=== PATIENT | female | born 1975 | race Two or more races ===

== ENCOUNTER → 2018-08-18 | Outpatient (CLI) | payer MEDICARE ==
[~2018-08-18] VITALS: Ht 162.6 cm; Wt 104.0 kg
[~2018-08-18] MED LIST: ASPI-556 PO; ATOR40TA28 PO; BUME1TAB17 PO; CARV25 PO; DOXY100C PO; INSLAN SQ; INSU100C6 SQ; LISI-662 PO; SPIR25 PO
[2018-08-18 09:32] VITALS: BP 163/98
[2018-08-18 10:08] LABS: GLUCOMETER DEV NAME(LOC) HBW.; GLUCOSE,POINT OF CARE 324 MG/DL (70-110)
[2018-08-18 11:48] LABS: BASOPHILS % (AUTO) 0.7 % (0.0-2.0); EOSINOPHILS % (AUTO) 2.8 % (1.0-6.0); HEMATOCRIT 25.5 % (36-46); HEMOGLOBIN 8.4 g/dL (12.0-16.0); LYMPHOCYTES # (AUTO) 2.4 K/uL (1.0-4.8); LYMPHOCYTES % (AUTO) 28.2 % (22.0-44.0); MEAN CORPUSCULAR HEMOGLOBIN 27.5 pg (26.0-34.0); MEAN CORPUSCULAR HGB CONC 32.8 G/dL (31.0-37.0); MEAN CORPUSCULAR VOLUME 84 fL (80-100); MONOCYTES # (AUTO) 0.5 K/uL (0.1-1.0); MONOCYTES % (AUTO) 6.1 % (2.0-9.0); NEUTROPHILS # (AUTO) 5.3 K/uL (1.8-7.7); NEUTROPHILS % (AUTO) 62.2 % (40.0-70.0); PLATELET COUNT (AUTO) 298 K/uL (150-450); RED BLOOD CELL COUNT(AUTO) 3.05 MIL/uL (4.00-5.20); RED CELL DISTRIBUTION WIDTH 14.9 % (11.5-14.5)
[2018-08-18 11:59] LABS: ALBUMIN 1.7 g/dL (3.4-5.0); C-REACTIVE PROTEIN QUANT 0.25 mg/dL (0.00-0.30)
[2018-08-18 12:51] LABS: ERYTHROCYTE SEDIMENTATION RATE 110 MM/HR (0-20)
== END | disposition home or self-care (01) ==
LOC: HBOWC 09:13
PROVIDERS: ATTEND Emergency Medicine
DX: M77.32 Calcaneal spur, left foot (principal); L98.499 Non-pressure chronic ulcer of skin of other sites with unspecified severity; M86.9 Osteomyelitis, unspecified; Z89.111 Acquired absence of right hand
CPT/HCPCS: 84134; 85651; 86140; 87070

== ENCOUNTER → 2018-08-25 | Outpatient (CLI) | payer MEDICARE ==
[2018-08-25 10:34] LABS: GLUCOMETER DEV NAME(LOC) HBW.; GLUCOSE,POINT OF CARE 382 MG/DL (70-110)
[2018-08-25 10:35] VITALS: BP 168/81
== END | disposition home or self-care (01) ==
LOC: HBOWC 09:47
PROVIDERS: ATTEND Emergency Medicine
DX: E11.621 Type 2 diabetes mellitus with foot ulcer (principal); I83.014 Varicose veins of right lower extremity with ulcer of heel and midfoot; L97.412 Non-pressure chronic ulcer of right heel and midfoot with fat layer exposed; I83.024 Varicose veins of left lower extremity with ulcer of heel and midfoot; L97.422 Non-pressure chronic ulcer of left heel and midfoot with fat layer exposed; I83.015 Varicose veins of right lower extremity with ulcer other part of foot; L97.512 Non-pressure chronic ulcer of other part of right foot with fat layer exposed; I83.025 Varicose veins of left lower extremity with ulcer other part of foot; L97.522 Non-pressure chronic ulcer of other part of left foot with fat layer exposed; L84 Corns and callosities; E11.51 Type 2 diabetes mellitus with diabetic peripheral angiopathy without gangrene; E11.42 Type 2 diabetes mellitus with diabetic polyneuropathy; B35.1 Tinea unguium; D64.9 Anemia, unspecified; E46 Unspecified protein-calorie malnutrition; E11.22 Type 2 diabetes mellitus with diabetic chronic kidney disease; I13.0 Hypertensive heart and chronic kidney disease with heart failure and stage 1 through stage 4 chronic kidney disease, or unspecified chronic kidney disease; I50.9 Heart failure, unspecified; N18.9 Chronic kidney disease, unspecified; E78.5 Hyperlipidemia, unspecified; K76.89 Other specified diseases of liver; E11.69 Type 2 diabetes mellitus with other specified complication; M86.9 Osteomyelitis, unspecified; F17.290 Nicotine dependence, other tobacco product, uncomplicated; Z79.4 Long term (current) use of insulin; Z79.82 Long term (current) use of aspirin; Z89.111 Acquired absence of right hand; Z89.421 Acquired absence of other right toe(s)
CPT/HCPCS: 11042

== ENCOUNTER 2018-09-21 18:22 | Emergency (ER) | payer MEDICARE ==
[~2018-09-21] VITALS: Ht 162.6 cm; Wt 104.5 kg
[2018-09-21 19:06] LABS: BASOPHILS % (AUTO) 1.2 % (0.0-2.0); EOSINOPHILS % (AUTO) 2.7 % (1.0-6.0); HEMATOCRIT 26.3 % (36-46); HEMOGLOBIN 8.6 g/dL (12.0-16.0); LYMPHOCYTES # (AUTO) 2.3 K/uL (1.0-4.8); MEAN CORPUSCULAR HEMOGLOBIN 26.7 pg (26.0-34.0); MEAN CORPUSCULAR HGB CONC 32.7 G/dL (31.0-37.0); MEAN CORPUSCULAR VOLUME 82 fL (80-100); MONOCYTES # (AUTO) 0.4 K/uL (0.1-1.0); MONOCYTES % (AUTO) 4.9 % (2.0-9.0); NEUTROPHILS % (AUTO) 66.2 % (40.0-70.0); PLATELET COUNT (AUTO) 315 K/uL (150-450); RED BLOOD CELL COUNT(AUTO) 3.21 MIL/uL (4.00-5.20); RED CELL DISTRIBUTION WIDTH 14.7 % (11.5-14.5)
[2018-09-21 19:14] LABS: CALCIUM, TOTAL 8.1 mg/dL (8.8-10.5); CREATININE 1.52 mg/dL (0.60-1.30); POTASSIUM 4.2 mmol/L (3.5-5.1)
[2018-09-21 19:18] LABS: PROTHROMBIN TIME 10.4 SEC (9.4-11.6)
[2018-09-21 19:20] LABS: ALBUMIN 1.6 g/dL (3.4-5.0); BILIRUBIN,TOTAL 0.2 mg/dL (0.1-1.0); TOTAL PROTEIN, SERUM 6.4 g/dL (6.4-8.2)
[2018-09-21 19:44] LABS: GLUCOSE,POINT OF CARE 359 MG/DL (70-110)
[2018-09-21] MEDS ORDERED: INSULIN REGULAR, HUMAN 100 UNITS/ML IVP ONE (20:00)
[2018-09-21 21:00] VITALS: BP 140/91
[2018-09-21 21:05] LABS: GLUCOSE,POINT OF CARE 243 MG/DL (70-110)
== END 2018-09-21 22:07 | disposition home or self-care (01) ==
LOC: EMS 18:23
DX: R60.0 Localized edema (principal); L03.116 Cellulitis of left lower limb; L03.115 Cellulitis of right lower limb; D64.9 Anemia, unspecified; R79.89 Other specified abnormal findings of blood chemistry; M79.89 Other specified soft tissue disorders; I50.9 Heart failure, unspecified; E11.9 Type 2 diabetes mellitus without complications; F32.9 Major depressive disorder, single episode, unspecified; Z91.19 Patient's noncompliance with other medical treatment and regimen; Z79.4 Long term (current) use of insulin; Z79.899 Other long term (current) drug therapy
CPT/HCPCS: 36415; 71045; 80053; 82962; 83880; 85025; 85610; 93970; 96374; 99285; J1815; 82948